=== PATIENT | female | born 1980 | race Caucasian/White ===

== ENCOUNTER → 2016-08-08 | Outpatient (CLI) | payer OTHER ==
[~2016-08-08] MED LIST: B-COCAP2 PO; CHOL2000 PO; LEVO100T PO; PANT40TA
--- NOTE | 2016-08-08 09:45 | DIAGNOSTIC IMAGING REPORT ---
GI SERIES W/AIR ROUTINE CLINICAL HISTORY: Left-sided abdominal pain. Gastroparesis. COMPARISON STUDY: None. FLUOROSCOPY TIME: 1.9 minutes. FINDINGS: Cholecystectomy clips are noted. Esophageal motility is normal. No esophageal mass or stricture is identified. The gastroesophageal junction is normal. Gastric pattern is normal. No reflux was elicited. Gastric emptying appeared normal on this exam. Duodenum was normal. Ligament of Treitz was normal in position. IMPRESSION: Normal double contrast upper GI series. Electronically signed by: Forrest Casas M.D. 08/08/2016 9:43 AM Dictated Date/Time: 08/08/2016 9:38 AM
== END | disposition home or self-care (01) ==
LOC: C.RAD 08:59
PROVIDERS: ATTEND Physician Assistant
DX: R10.9 Unspecified abdominal pain (principal); K31.84 Gastroparesis